=== PATIENT | female | born 1975 | race Caucasian/White ===

== ENCOUNTER 2017-04-16 10:32 | Emergency (ER) | payer BC ==
[2017-04-16] MEDS ORDERED: Nitroglycerin 0.4 MG Tab.SL SL ONE (10:47)
[2017-04-16] MEDS ORDERED: Aspirin 81 MG Tab.Chew PO ONE (10:47)
[2017-04-16 11:25] LABS: CHLORIDE,CL 109 mmol/L (98-110); SODIUM,NA 140 mmol/L (136-146)
--- NOTE | 2017-04-16 11:49 | CR ---
EXAMINATION: Two-view chest (PA and Lateral views). HISTORY: Shortness of breath. FINDINGS: The trachea is midline. The cardiomediastinal silhouette is within normal limits. No pulmonary infil trates, effusions or pneumothorax. Osseous structures appear unremarkable. IMPRESSION: No acute cardiopulmonary process.
--- NOTE | 2017-04-16 12:06 | EDM.PDOC ---
ED HPI GENERAL MEDICAL PROBLEM - General Chief Complaint: Chest Pain Stated Complaint: CHEST PAIN Time Seen by Provider: 04/16/17 10:41 Source of Information: Reports: Patient History Limitations: Reports: No Limitations - History of Present Illness INITIAL COMMENTS - FREE TEXT/NARRATIVE: History of present illness: []Patient has had over a month of left-sided chest pain and epigastric pain. She 's been seeing Dr. Dueñas from cardiology and has had an echocardiogram and EKG. That are apparently normal. Patient started having fever and ongoing chest pain yesterday and decided to come in for further evaluation. She denies any shortness of breath, syncope, nausea, vomiting or diarrhea. Review of systems: As per history of present illness and below otherwise all systems reviewed and negative. Past medical history: As per history of present illness and as reviewed below otherwise noncontributory. Surgical history: As per history of present illness and as reviewed below otherwise noncontributory. Social history: No reported history of drug or alcohol abuse. Family history: As per history of present illness and as reviewed below otherwise noncontributory. Physical exam: General: Well developed, well nourished in NAD HEENT: Atraumatic, normocephalic, pupils reactive, negative for conjunctival pallor or scleral icterus, mucous membranes moist, throat clear, neck supple, nontender, trachea midline. Lungs: Clear to auscultation, breath sounds equal bilaterally, chest nontender. Chest pain is nonreproducibl upper chest Heart: S1S2, regular, negative for clicks, rubs, or JVD. Abdomen: Soft, nondistended, nontender. Negative for masses or hepatosplenomegaly. Negative for costovertebral tenderness. Pelvis: Stable nontender. Genitourinary: Deferred. Rectal: Deferred. Extremities: Atraumatic, negative for cords or calf pain. Neurovascular unremarkable. Neuro: Awake, alert, oriented. Cranial nerves II through XII unremarkable. Cerebellum unremarkable. Motor and sensory unremarkable throughout. Exam nonfocal. Diagnostics: []Labs and x-ray are normal including troponin levels. Therapeutics: []She was given aspirin and nitroglycerin alleviated her pain Impression: []Pleurisy Plan: []Diclofenac, omeprazole follow-up with primary care and/or Dr. Dueñas Definitive disposition and diagnosis as appropriate pending reevaluation and review of above. chest Pain Score (Numeric/FACES): 5 - Related Data Allergies Allergy/AdvReac Type Severity Reaction Status Date / Time ciprofloxacin Allergy Anxiety Verified 04/16/17 10:47 Home Meds: Home Meds ClonazePAM [KlonoPIN] 0.5 mg PO BID 04/16/17 [History] Past Medical History - Past Health History Medical/Surgical History: Denies Medical/Surgical History Psychiatric History: Reports: Anxiety Social & Family History - Family History Family Medical History: Noncontributory - Tobacco Use Smoking Status *Q: Current Every Day Smoker Years of Tobacco use: 20 Packs/Tins Daily: 1 - Recreational Drug Use Recreational Drug Use: No ED ROS GENERAL - Review of Systems Review Of Systems: See Below (History of present illness) ED EXAM, GENERAL - Physical Exam Exam: See Below (History of present illness) Course - Vital Signs Last Recorded V/S: Last Vital Signs Temp 36.6 C 04/16/17 10:40 Pulse 80 04/16/17 10:40 Resp 20 04/16/17 10:40 BP 126/76 04/16/17 11:05 Pulse Ox 98 04/16/17 10:40 - Orders/Labs/Meds Orders: Active Orders 24 hr Category Date Time Status Cardiac Monitoring [RC] . DIRECTED Care 04/16/17 10:47 Active EKG Documentation Completion [RC] STAT Care 04/16/17 10:48 Active CULTURE BLOOD [BC] Stat Lab 04/16/17 11:10 Received CULTURE BLOOD [BC] Stat Lab 04/16/17 11:24 Received Blood Culture x2 Reflex Set [OM.PC] Stat Oth 04/16/17 10:55 Ordered Saline Lock Insert [OM.PC] Stat Oth 04/16/17 10:47 Ordered Labs: Laboratory Tests 04/16/17 04/16/17 04/16/17 Range/Units 10:40 10:40 10:40 WBC 8.93 (4.0-11.0) K/uL RBC 4.66 (4.30-5.90) M/uL Hgb 15.3 (12.0-16.0) g/dL Hct 44.1 (36.0-46.0) % MCV 94.6 (80.0-98.0) fL MCH 32.8 H (27.0-32.0) pg MCHC 34.7 (31.0-37.0) g/dL RDW Std Deviation 42.2 (28.0-62.0) fl RDW Coeff of Robyn 12 (11.0-15.0) % Plt Count 229 (150-400) K/uL MPV 10.70 (7.40-12.00) fL Neut % (Auto) 53.2 (48.0-80.0) % Lymph % (Auto) 39.8 (16.0-40.0) % [place] % (Auto) 5.9 (0.0-15.0) % Eos % (Auto) 0.8 (0.0-7.0) % Baso % (Auto) 0.3 (0.0-1.5) % Neut # (Auto) 4.8 (1.4-5.7) K/uL Lymph # (Auto) 3.6 H (0.6-2.4) K/uL [place] # (Auto) 0.5 (0.0-0.8) K/uL Eos # (Auto) 0.1 (0.0-0.7) K/uL Baso # (Auto) 0.0 (0.0-0.1) K/uL Nucleated RBC % 0.0 /100WBC Nucleated RBCs # 0 K/uL Sodium 140 (136-146) mmol/L Potassium 3.9 (3.5-5.1) mmol/L Chloride 109 (98-110) mmol/L Carbon Dioxide 21 (21-31) mmol/L BUN 7 (6.0-23.0) mg/dL Creatinine 0.8 (0.6-1.5) mg/dL Est Cr Clr Drug Dosing 70.98 mL/min Estimated GFR (MDRD) > 60.0 ml/min Glucose 88 (60-110) mg/dL Calcium 9.7 (8.8-10.8) mg/dL Total Bilirubin 0.7 (0.1-1.5) mg/dL AST 18 (5-40) IU/L ALT 12 (8-54) IU/L Alkaline Phosphatase 69 (40-150) Troponin I < 0.10 (0.0-0.29) NG/ML Total Protein 7.3 (6.0-8.0) g/dL Albumin 4.5 (3.5-5.0) g/dL Globulin 2.8 (2.0-3.5) g/dL Albumin/Globulin Ratio 1.6 (1.3-2.8) Meds: Medications Discontinued Medications Generic Name Dose Route Start Last Admin Trade Name Angelo PRN Reason Stop Dose Admin Aspirin 324 mg 04/16/17 10:47 04/16/17 11:04 Aspirin PO 04/16/17 10:48 324 mg ONETIME ONE Administration Nitroglycerin 0.4 mg 04/16/17 10:47 04/16/17 11:05 Nitrostat SL 04/16/17 10:48 0.4 mg ONETIME ONE Administration Departure - Departure Time of Disposition: 12:05 Disposition: Home, Self-Care 01 Condition: Good Clinical Impression: Pleurisy Forms: ED Department Discharge Additional Instructions: The following information is given to patients seen in the emergency department who are being discharged to home. This information is to outline your options for follow-up care. We provide all patients seen in our emergency department with a follow-up referral. The need for follow-up, as well as the timing and circumstances, are variable depending upon the specifics of your emergency department visit. If you don't have a primary care physician on staff, we will provide you with a referral. We always advise you to contact your personal physician following an emergency department visit to inform them of the circumstance of the visit and for follow-up with them and/or the need for any referrals to a consulting specialist. The emergency department will also refer you to a specialist when appropriate. This referral assures that you have the opportunity for follow-up care with a specialist. All of these measure are taken in an effort to provide you with optimal care, which includes your follow-up. Under all circumstances we always encourage you to contact your private physician who remains a resource for coordinating your care. When calling for follow-up care, please make the office aware that this follow-up is from your recent emergency room visit. If for any reason you are refused follow-up, please contact the [facility] Emergency Department at and asked to speak to the emergency department charge nurse. Diclofenac and omeprazole follow-up with primary care physician and/or Dr. Dueñas [facility] [address] [place] [id number] - My Orders Last 24 Hours: My Active Orders 04/16/17 10:47 Cardiac Monitoring [RC] . DIRECTED Saline Lock Insert [OM.PC] Stat 04/16/17 10:48 EKG Documentation Completion [RC] STAT 04/16/17 10:55 Blood Culture x2 Reflex Set [OM.PC] Stat 04/16/17 11:10 CULTURE BLOOD [BC] Stat 04/16/17 11:24 CULTURE BLOOD [BC] Stat - Assessment/Plan Last 24 Hours: My Active Orders 04/16/17 10:47 Cardiac Monitoring [RC] . DIRECTED Saline Lock Insert [OM.PC] Stat 04/16/17 10:48 EKG Documentation Completion [RC] STAT 04/16/17 10:55 Blood Culture x2 Reflex Set [OM.PC] Stat 04/16/17 11:10 CULTURE BLOOD [BC] Stat 04/16/17 11:24 CULTURE BLOOD [BC] Stat
[2017-04-16 12:41] VITALS: BP 119/78
== END 2017-04-16 12:15 | disposition home or self-care (01) ==
LOC: MW.ED 10:32
DX: R09.1 Pleurisy (principal); F17.210 Nicotine dependence, cigarettes, uncomplicated; F41.9 Anxiety disorder, unspecified; Z88.1 Allergy status to other antibiotic agents
CPT/HCPCS: 36415; 71020; 80053; 84484; 85025; 87040; 93005; 99285; A9270; 99284

== ENCOUNTER 2019-01-24 11:58 | Emergency (ER) | payer BC ==
[2019-01-24] MEDS ORDERED: Sodium Chloride 0.9% 10 ML Syringe FLUSH PRN (12:21)
[2019-01-24] MEDS ORDERED: Ketorolac 30 MG/ML SDV IVPUSH ONE (12:21)
[2019-01-24] MEDS ORDERED: Ondansetron 4 MG/2 ML SDV IVPUSH ONE (12:21)
[2019-01-24] MEDS ORDERED: Sodium Chloride 0.9% 1,000 ML IV ONE (12:21)
[2019-01-24] MEDS ORDERED: Morphine 2 MG/ML Syringe IVPUSH ONE (12:21)
[2019-01-24] MEDS ORDERED: Sodium Chloride 0.9% 2.5 ML Syringe FLUSH PRN (12:21)
--- NOTE | 2019-01-24 12:26 | EDM.PDOC ---
ED HPI GENERAL MEDICAL PROBLEM - General Chief Complaint: Abdominal Pain Stated Complaint: STOMACH PAIN Time Seen by Provider: 01/24/19 12:01 - History of Present Illness INITIAL COMMENTS - FREE TEXT/NARRATIVE: HISTORY AND PHYSICAL: History of present illness: The patient is a 43-year-old female who has no GI history but does have a history of a kidney stone on the right, a pyelonephritis on the right, and an ovarian cyst on the right in the past that needed surgical intervention and also has had a bilateral tubal ligation and presents with complaints of right- sided abdominal pain that started about a week ago. It started gradually and there was no sudden component to it. She says it has gradually gotten worse and initially started in the right mid abdomen and now is radiating to the right upper and right lower quadrants as well as around her bellybutton. She has had nausea with this but no vomiting and no urinary complaints. She has not had any bowel disturbances such as diarrhea constipation or black or bloody stools. The patient says that she presented to the ER in [place] last evening and was evaluated with labs, all of which she was told were normal, but did not have any imaging. She did have IV medications of morphine and Toradol and said that that did help with her pain but as she was leaving the pain was coming back and she was not given anything for the discomfort. The patient says the pain returned and is stronger and she is here for reevaluation. She said that she had a temperature last evening but did not have a documented temperature at home over the last 1 week or last evening when she went home. She says that this pain is different than her kidney stone and ovarian cyst. The patient has no history of food intolerance peptic ulcer disease and did not take any over- the-counter meds for those symptoms or her pain today. She has no flank pain no chest pain or shortness of breath. She has no dysuria hematuria or frequency. The patient states that she had an outpatient test done yesterday morning, a barium swallow, for difficulty swallowing and was not related to her abdominal pain. Review of systems: As per history of present illness and below otherwise all systems reviewed and negative. Past medical history: As per history of present illness and as reviewed below otherwise noncontributory. Surgical history: As per history of present illness and as reviewed below otherwise noncontributory. Social history: No reported history of drug or alcohol abuse. Family history: As per history of present illness and as reviewed below otherwise noncontributory. Physical exam: General: Well-developed well-nourished female who is thin and vital signs are noted by me. She looks uncomfortable in the room with movements HEENT: Atraumatic, normocephalic, negative for conjunctival pallor or scleral icterus, mucous membranes moist, throat clear, neck supple, nontender, trachea midline. Lungs: Clear to auscultation, breath sounds equal bilaterally, chest nontender. Heart: S1S2, regular rate and rhythm no overt murmurs Abdomen: Soft, nondistended, bowel sounds are hypoactive and there is some mild tympany on percussion in the upper abdomen. There is diffuse right-sided tenderness in the right upper right mid and right lower quadrant with some voluntary guarding but no rebound. Negative for masses or hepatosplenomegaly. Negative for costovertebral tenderness. Pelvis: Stable nontender. Genitourinary: Deferred. Rectal: Deferred. Extremities: Atraumatic, negative for cords or calf pain. Neurovascular unremarkable. Neuro: Awake, alert, oriented. Cranial nerves II through XII unremarkable. Cerebellum unremarkable. Motor and sensory unremarkable throughout. Exam nonfocal. Diagnostics: CBC CMP amylase lipase UA with reflex CT scan of the abdomen and pelvis Therapeutics: IV fluids morphine Toradol Zofran Patient is feeling better and I have discussed with her at length her testing results. I've also discussed the CT scan findings with the radiologist Dr. London as I was not sure if I could do any further testing to better evaluate the ureters. He feels at this point as there is no proximal hydronephrosis and the kidneys look good he would not do an ultrasound of the kidney on the right side. He cannot definitely say that there is no kidney stone albeit small in the distal ureter but has is not causing significant hydronephrosis he would not pursue it any further and is treated symptomatically. He is also concerned about the right ovary and says that that looks like an involuting cyst which may be the trigger for her brain area I discussed all of this with the patient and at bedside and will give her pain management for home as well as Zofran and follow-up with our [facility] woman[facility] clinic. Impression: Right-sided abdominal pain, right ovarian cyst Definitive disposition and diagnosis as appropriate pending reevaluation and review of above. Right Lower Abdominal Pain Score (Numeric/FACES): 8 - Related Data Allergies Allergy/AdvReac Type Severity Reaction Status Date / Time ciprofloxacin Allergy Anxiety Verified 04/16/17 10:47 fluoxetine [From Prozac] Allergy Seizure Verified 01/24/19 12:10 naproxen [From Aleve] Allergy Anaphylactic Verified 01/24/19 12:10 Shock Home Meds: Home Meds ClonazePAM [KlonoPIN] 0.5 mg PO BID 04/16/17 [History] Past Medical History - Past Health History Medical/Surgical History: Denies Medical/Surgical History Cardiovascular History: Reports: None Respiratory History: Reports: None Gastrointestinal History: Reports: None [employer] History: Reports: None Musculoskeletal History: Reports: None Neurological History: Reports: None Psychiatric History: Reports: Anxiety Endocrine/Metabolic History: Reports: None Immunologic History: Reports: None - Infectious Disease History Infectious Disease History: Reports: None - Past Surgical History HEENT Surgical History: Reports: Tonsillectomy Female Surgical History: Reports: Other (See Below) Other Female Surgeries/Procedures: Mass removed from right brest. Social & Family History - Family History Family Medical History: Noncontributory - Tobacco Use Smoking Status *Q: Current Every Day Smoker Years of Tobacco use: 30 Packs/Tins Daily: 1 - Caffeine Use Caffeine Use: Reports: Coffee - Recreational Drug Use Recreational Drug Use: Yes Recreational Drug Type: Reports: Marijuana/Hashish ED ROS GENERAL - Review of Systems Review Of Systems: ROS reveals no pertinent complaints other than HPI. ED EXAM, GENERAL - Physical Exam Exam: See Below (See dictation) Course - Vital Signs Last Recorded V/S: Last Vital Signs Temp 36.3 C 01/24/19 12:11 Pulse 93 01/24/19 12:11 Resp 18 01/24/19 12:11 BP 138/72 01/24/19 12:11 Pulse Ox 97 01/24/19 12:11 - Orders/Labs/Meds Orders: Active Orders 24 hr Category Date Time Status Sodium Chloride 0.9% [Saline Flush] Med 01/24/19 12:21 Active 10 ml FLUSH ASDIRECTED PRN Sodium Chloride 0.9% [Saline Flush] Med 01/24/19 12:21 Active 2.5 ml FLUSH ASDIRECTED PRN Saline Lock Insert [OM.PC] Stat Oth 01/24/19 12:20 Ordered Medication Orders Sodium Chloride (Saline Flush) 10 ml FLUSH ASDIRECTED PRN PRN Reason: Keep Vein Open Sodium Chloride (Saline Flush) 2.5 ml FLUSH ASDIRECTED PRN PRN Reason: Keep Vein Open Labs: Laboratory Tests 01/24/19 01/24/19 01/24/19 Range/Units 12:26 12:26 13:25 WBC 7.87 (4.0-11.0) K/uL RBC 4.68 (4.30-5.90) M/uL Hgb 15.7 (12.0-16.0) g/dL Hct 45.2 (36.0-46.0) % MCV 96.6 (80.0-98.0) fL MCH 33.5 H (27.0-32.0) pg MCHC 34.7 (31.0-37.0) g/dL RDW Std Deviation 44.5 (28.0-62.0) fl RDW Coeff of Robyn 13 (11.0-15.0) % Plt Count 239 (150-400) K/uL MPV 10.60 (7.40-12.00) fL Neut % (Auto) 52.4 (48.0-80.0) % Lymph % (Auto) 38.6 (16.0-40.0) % [place] % (Auto) 8.1 (0.0-15.0) % Eos % (Auto) 0.6 (0.0-7.0) % Baso % (Auto) 0.3 (0.0-1.5) % Neut # (Auto) 4.1 (1.4-5.7) K/uL Lymph # (Auto) 3.0 H (0.6-2.4) K/uL [place] # (Auto) 0.6 (0.0-0.8) K/uL Eos # (Auto) 0.1 (0.0-0.7) K/uL Baso # (Auto) 0.0 (0.0-0.1) K/uL Nucleated RBC % 0.0 /100WBC Nucleated RBCs # 0 K/uL Sodium 139 (136-145) mmol/L Potassium 3.7 (3.5-5.1) mmol/L Chloride 104 (98-107) mmol/L Carbon Dioxide 24.8 (21.0-32.0) mmol/L BUN 9 (7.0-18.0) mg/dL Creatinine 0.8 (0.6-1.0) mg/dL Est Cr Clr Drug Dosing 76.09 mL/min Estimated GFR (MDRD) > 60.0 ml/min Glucose 92 (74-106) mg/dL Calcium 9.1 (8.5-10.1) mg/dL Total Bilirubin 0.7 (0.2-1.0) mg/dL AST 14 L (15-37) IU/L ALT 11 L (14-63) IU/L Alkaline Phosphatase 64 (46-116) U/L Total Protein 7.5 (6.4-8.2) g/dL Albumin 4.3 (3.4-5.0) g/dL Globulin 3.2 (2.6-4.0) g/dL Albumin/Globulin Ratio 1.3 (0.9-1.6) Amylase 58 (25-115) U/L Lipase 111 (73-393) U/L Urine Color YELLOW Urine Appearance SLT CLOUDY Urine pH 6.0 (5.0-8.0) Ur Specific [place] 1.015 (1.001-1.035) Urine Protein NEGATIVE (NEGATIVE) mg/dL Urine Glucose (UA) NEGATIVE (NEGATIVE) mg/dL Urine Ketones TRACE H (NEGATIVE) mg/dL Urine Occult Blood NEGATIVE (NEGATIVE) Urine Nitrite NEGATIVE (NEGATIVE) Urine Bilirubin NEGATIVE (NEGATIVE) Urine Urobilinogen 0.2 (<2.0) EU/dL Ur Leukocyte Esterase NEGATIVE (NEGATIVE) Meds: Medications Generic Name Dose Route Start Last Admin Trade Name Freq PRN Reason Stop Dose Admin Sodium Chloride 10 ml 01/24/19 12:21 Saline Flush FLUSH ASDIRECTED PRN Keep Vein Open Sodium Chloride 2.5 ml 01/24/19 12:21 Saline Flush FLUSH ASDIRECTED PRN Keep Vein Open Discontinued Medications Generic Name Dose Route Start Last Admin Trade Name Freq PRN Reason Stop Dose Admin Sodium Chloride 1,000 mls @ 999 mls/hr 01/24/19 12:21 01/24/19 12:25 Normal Saline IV 01/24/19 13:21 999 mls/hr STAT ONE Administration Iopamidol 80 ml 01/24/19 13:54 01/24/19 13:55 Isovue Multipack-370 (76%) IVPUSH 01/24/19 13:55 80 ml ONETIME ONE Administration Ketorolac Tromethamine 30 mg 01/24/19 12:21 01/24/19 12:29 Toradol IVPUSH 01/24/19 12:22 30 mg ONETIME ONE Administration Morphine Sulfate 4 mg 01/24/19 12:21 01/24/19 12:31 Morphine IVPUSH 01/24/19 12:22 4 mg ONETIME ONE Administration Ondansetron HCl 4 mg 01/24/19 12:21 01/24/19 12:29 Zofran IVPUSH 01/24/19 12:22 4 mg ONETIME ONE Administration Departure - Departure Time of Disposition: 15:24 Disposition: Home, Self-Care 01 Condition: Good Clinical Impression: Ovarian cyst Abdominal pain Qualifiers: Abdominal location: unspecified location Qualified Code(s): R10.9 - Unspecified abdominal pain - Discharge Information Referrals: PCP,Unknown [Primary Care Provider] - Forms: ED Department Discharge Additional Instructions: The following information is given to patients seen in the emergency department who are being discharged to home. This information is to outline your options for follow-up care. We provide all patients seen in our emergency department with a follow-up referral. The need for follow-up, as well as the timing and circumstances, are variable depending upon the specifics of your emergency department visit. If you don't have a primary care physician on staff, we will provide you with a referral. We always advise you to contact your personal physician following an emergency department visit to inform them of the circumstance of the visit and for follow-up with them and/or the need for any referrals to a consulting specialist. The emergency department will also refer you to a specialist when appropriate. This referral assures that you have the opportunity for followup care with a specialist. All of these measure are taken in an effort to provide you with optimal care, which includes your followup. Under all circumstances we always encourage you to contact your private physician who remains a resource for coordinating your care. When calling for followup care, please make the office aware that this follow-up is from your recent emergency room visit. If for any reason you are refused follow-up, please contact the [facility] emergency department at and ask to speak to the emergency department charge nurse. [facility] [address] [place] [address] [place] [address] Please take medications as prescribed and needed. Push hydration and rest. Please call and schedule a follow-up appointment to reevaluate the ovarian cyst on the right and for further management of this pain. Return to ER as needed and as discussed - My Orders Last 24 Hours: My Active Orders 01/24/19 12:20 Saline Lock Insert [OM.PC] Stat 01/24/19 12:21 Sodium Chloride 0.9% [Saline Flush] 10 ml FLUSH ASDIRECTED PRN Sodium Chloride 0.9% [Saline Flush] 2.5 ml FLUSH ASDIRECTED PRN - Assessment/Plan Last 24 Hours: My Active Orders 01/24/19 12:20 Saline Lock Insert [OM.PC] Stat 01/24/19 12:21 Sodium Chloride 0.9% [Saline Flush] 10 ml FLUSH ASDIRECTED PRN Sodium Chloride 0.9% [Saline Flush] 2.5 ml FLUSH ASDIRECTED PRN
[2019-01-24 12:56] LABS: CHLORIDE,CL 104 mmol/L (98-107); SODIUM,NA 139 mmol/L (136-145)
[2019-01-24] MEDS ORDERED: Iopamidol 755 MG/ML 500 ML Multipack Bottle IVPUSH ONE (13:54)
--- NOTE | 2019-01-24 14:43 | CT ---
CT of the abdomen and pelvis with contrast. HISTORY: Kidney stone TECHNIQUE: Axial CT images were obtained of the abdomen and pelvis following administration of 80 mL of Isovue-370 in the left antecubital fossa without complication. Coronal and sagittal reconstructions obtained. FINDINGS: The lung bases are clear, no pleural effusion. The liver, spleen, adrenal glands, and pancreas appear normal. The gallbladder is normal. There is no bulky retroperitoneal lymphadenopathy or abdominal ascites. The kidneys enhance and function symmetrically without evidence of obstructive uropathy. However the mid to distal ureters are not well imaged due to extensive artifact from the previous barium study. The visualized large and small bowel are normal caliber without evidence of obstruction. The appendix is not definitively identified due to extensive artifact. There is a involuting right ovarian follicle. There is mild edema and fluid adjacent to the right ovary. No suspicious osseous abnormalities identified. IMPRESSION: 1. No definite evidence of hydronephrosis, however evaluation of the ureters is obscured secondary to extensive artifact from the previous barium study. 2. There is an involuting follicle within the right ovary with a trace paraovarian stranding/fluid. Overall this is also not well characterized due to artifact.
[2019-01-24 19:20] VITALS: BP 97/56
== END 2019-01-24 15:50 | disposition home or self-care (01) ==
LOC: MW.ED 11:58
DX: N83.201 Unspecified ovarian cyst, right side (principal); F41.9 Anxiety disorder, unspecified; Z88.1 Allergy status to other antibiotic agents; Z88.8 Allergy status to other drugs, medicaments and biological substances; Z79.899 Other long term (current) drug therapy
CPT/HCPCS: 74177; 80053; 81003; 82150; 83690; 85025; 96361; 96374; 96375; 99284; J1885; J2270; J2405; J7040; Q9967

== ENCOUNTER 2020-04-01 07:43 | Day surgery (SDC) | payer BC ==
[2020-03-31 10:20] LABS: BLOOD UREA NITROGEN,BUN 6 mg/dL (7.0-18.0); CARBON DIOXIDE,CO2 27.4 mmol/L (21.0-32.0); CHLORIDE,CL 104 mmol/L (98-107); GLUCOSE RANDOM 92 mg/dL (74-106); POTASSIUM,K 4.1 mmol/L (3.5-5.1); SODIUM,NA 140 mmol/L (136-145)
[~2020-04-01 07:43] MED LIST: Lactated Ringers 1,000 ML IV SCH; Sodium Chloride 0.9% 10 ML SDV IV PRN; Sodium Chloride 0.9% 10 ML Syringe FLUSH PRN; Sodium Chloride 0.9% 2.5 ML Syringe FLUSH PRN; ceFAZolin 2 GM in Premix Bag 1 BAG IV ONE
--- NOTE | 2020-04-01 08:44 | PCM.PREANE ---
Preanesthetic Assessment - Anesthesia/Transfusion/Family Hx Anesthesia History: Prior Anesthesia Reaction Type of Anesthesia Reaction: Excessive Nausea/Vomiting Family History of Anesthesia Reaction: No Transfusion History: No Prior Transfusion(s) - Review of Systems General: No Symptoms Pulmonary: No Symptoms Cardiovascular: No Symptoms Gastrointestinal: No Symptoms Neurological: No Symptoms Other: Reports: None - Physical Assessment NPO Status Date: 03/31/20 Vital Signs: Last Vital Signs Temp 98.8 F 04/01/20 08:17 Pulse 83 04/01/20 08:17 Resp 16 04/01/20 08:17 BP 126/77 04/01/20 08:17 Pulse Ox 98 04/01/20 08:17 Height: 5 ft 4 in Weight: 50.802 kg ASA Class: 2 Mental Status: Alert & Oriented x3 Airway Class: Mallampati = 2 Dentition: Reports: Dentures (upper, full plate) ROM/Head Extension: Full Lungs: Clear to Auscultation, Normal Respiratory Effort Cardiovascular: Regular Rate, Regular Rhythm - Lab Values: Laboratory Last Values WBC 8.19 K/uL (4.0-11.0) 03/31/20 09:49 RBC 5.04 M/uL (4.30-5.90) 03/31/20 09:49 Hgb 16.0 g/dL (12.0-16.0) 03/31/20 09:49 Hct 46.9 % (36.0-46.0) H 03/31/20 09:49 MCV 93.1 fL (80.0-98.0) 03/31/20 09:49 MCH 31.7 pg (27.0-32.0) 03/31/20 09:49 MCHC 34.1 g/dL (31.0-37.0) 03/31/20 09:49 RDW Std Deviation 45.6 fl (28.0-62.0) 03/31/20 09:49 RDW Coeff of Robyn 13 % (11.0-15.0) 03/31/20 09:49 Plt Count 251 K/uL (150-400) 03/31/20 09:49 MPV 10.90 fL (7.40-12.00) 03/31/20 09:49 Nucleated RBC % 0.0 /100WBC 03/31/20 09:49 Nucleated RBCs # 0 K/uL 03/31/20 09:49 Sodium 140 mmol/L (136-145) 03/31/20 09:49 Potassium 4.1 mmol/L (3.5-5.1) 03/31/20 09:49 Chloride 104 mmol/L (98-107) 03/31/20 09:49 Carbon Dioxide 27.4 mmol/L (21.0-32.0) 03/31/20 09:49 BUN 6 mg/dL (7.0-18.0) L 03/31/20 09:49 Creatinine 0.6 mg/dL (0.6-1.0) 03/31/20 09:49 Est Cr Clr Drug Dosing 96.96 mL/min 03/31/20 09:49 Estimated GFR (MDRD) > 60.0 ml/min 03/31/20 09:49 Glucose 92 mg/dL (74-106) 03/31/20 09:49 Calcium 9.7 mg/dL (8.5-10.1) 03/31/20 09:49 HCG, Qual NEGATIVE (NEG) 03/31/20 09:49 Blood Type B POSITIVE 03/31/20 09:54 Antibody Screen NEGATIVE 03/31/20 09:54 - Allergies Allergies/Adverse Reactions: Allergies Allergy/AdvReac Type Severity Reaction Status Date / Time adhesive tape Allergy Blisters Verified 04/01/20 08:26 ciprofloxacin Allergy Anxiety Verified 04/01/20 08:26 fluoxetine [From Prozac] Allergy Seizure Verified 04/01/20 08:26 naproxen [From Aleve] Allergy Anaphylactic Verified 04/01/20 08:26 Shock - Blood Blood Available: No - Anesthesia Plan Pre-Op Medication Ordered: Other (scop) - Acknowledgements Anesthesia Type Planned: General Anesthesia Pt an Appropriate Candidate for the Planned Anesthesia: Yes Alternatives and Risks of Anesthesia Discussed w Pt/Guardian: Yes Pt/Guardian Understands and Agrees with Anesthesia Plan: Yes Additional Comments: PMH: recent sore throat, no fever, wheeze or bronchial secretions PLAN: ga/lma PreAnesthesia Questionnaire - Past Health History Medical/Surgical History: Denies Medical/Surgical History HEENT History: Reports: Other (See Below) Other HEENT History: wears glasses, top denture Cardiovascular History: Reports: None Respiratory History: Reports: Other (See Below) Other Respiratory History: states a doctor in [place] told her she had the starting of emphyzema. 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 Musculoskeletal History: Reports: Fracture Other Musculoskeletal History: hx fx arm as a child Neurological History: Reports: Migraines, Other (See Below) Other Neuro History: had seizure due to reaction to prozac Psychiatric History: Reports: Anxiety, Depression Endocrine/Metabolic History: Reports: None Hematologic History: Reports: None Immunologic History: Reports: None Oncologic (Cancer) History: Reports: None Dermatologic History: Reports: Psoriasis - Infectious Disease History Infectious Disease History: Reports: None - Past Surgical History Head Surgeries/Procedures: Reports: None HEENT Surgical History: Reports: Oral Surgery, Tonsillectomy Cardiovascular Surgical History: Reports: None Respiratory Surgical History: Reports: None GI Surgical History: Reports: None Female Surgical History: Reports: Breast Biopsy, Tubal Ligation, Other (See Below) Other Female Surgeries/Procedures: Mass removed from right breast, laparoscopic aspiration of ovaries Endocrine Surgical History: Reports: None Neurological Surgical History: Reports: None Musculoskeletal Surgical History: Reports: None Oncologic Surgical History: Reports: None Dermatological Surgical History: Reports: None - SUBSTANCE USE Smoking Status *Q: Current Every Day Smoker Tobacco Use Within Last Twelve Months: Cigarettes Recreational Drug Type: Reports: Marijuana/Hashish Recreational Drug Last Use: "1 month ago" - HOME MEDS Home Medications: Home Meds Ascorbate Calcium [Vitamin C] 500 mg PO DAILY 03/29/20 [History] Clobetasol Propionate 1 applic TOP BID 03/29/20 [History] [place]-3/DHA/Epa/Fish Oil [[place]-3 Fish Oil 1,000 MG Sfgl] 1,000 mg PO BID 03/29/20 [History] Omeprazole 20 mg PO DAILY 03/29/20 [History] Vitamin E 400 units PO DAILY 03/29/20 [History] clonazePAM [Clonazepam] 0.5 - 1 tab PO ASDIRECTED PRN 03/29/20 [History] - CURRENT (IN HOUSE) MEDS Current Meds: Current Medications Lactated Ringer's (Ringers, Lactated) 1,000 mls @ 125 mls/hr IV ASDIRECTED TORI Sodium Chloride (Saline Flush) 10 ml FLUSH ASDIRECTED PRN PRN Reason: Keep Vein Open Sodium Chloride (Saline Flush) 2.5 ml FLUSH ASDIRECTED PRN PRN Reason: Keep Vein Open Sodium Chloride (Normal Saline) 10 ml IV ASDIRECTED PRN PRN Reason: IV Use Discontinued Medications Cefazolin Sodium/Dextrose 2 gm (/ Premix) 50 mls @ 100 mls/hr IV ONETIME ONE Stop: 03/31/20 09:08
[2020-04-01] MEDS ORDERED: Scopolamine 1.5 MG Transdermal Patch TRDERM PRN (08:56)
[2020-04-01] MEDS ORDERED: Rocuronium Bromide 50 MG/5 ML Syringe ONE (09:24)
[2020-04-01] MEDS ORDERED: Lidocaine 2% 5 ML SDV ONE (09:24)
[2020-04-01] MEDS ORDERED: Propofol 200 MG/20 ML SDV ONE (09:25)
[2020-04-01] MEDS ORDERED: Sugammadex Sodium 200 MG/2 ML VIAL ONE (09:25)
[2020-04-01] MEDS ORDERED: Fluorescein 5 ML Vial ONE (09:27)
[2020-04-01] MEDS ORDERED: fentaNYL 250 MCG/5 ML SDV ONE (09:28)
[2020-04-01] MEDS ORDERED: Ondansetron 4 MG/2 ML SDV ONE (09:37)
[2020-04-01] MEDS ORDERED: Dexamethasone 4 MG/ML 5 ML MDV ONE (09:37)
[2020-04-01] MEDS ORDERED: ceFAZolin 1 GM Vial ONE (09:53)
[2020-04-01] MEDS ORDERED: EPINEPHrine 1:10,000 1 MG/10 ML Syringe IVPUSH PRN (09:58)
[2020-04-01] MEDS ORDERED: Naloxone 0.4 MG/ML Syringe IVPUSH PRN (09:58)
[2020-04-01] MEDS ORDERED: Atropine 0.1 MG/ML 10 ML Syringe IVPUSH PRN ×2 (09:58)
[2020-04-01] MEDS ORDERED: 50% Dextrose in Water 50 ML Syringe IVPUSH PRN (09:58)
[2020-04-01] MEDS ORDERED: Albuterol 0.083% 2.5 MG/3 ML Neb Soln NEB PRN (09:58)
[2020-04-01] MEDS ORDERED: Promethazine 25 MG/ML SDV IM PRN (10:33)
[2020-04-01] MEDS ORDERED: Acetaminophen/oxyCODONE 325-5 MG Tab PO PRN (10:33)
[2020-04-01] MEDS ORDERED: Ketorolac 30 MG/ML SDV IVPUSH ONE (10:33)
[2020-04-01] MEDS ORDERED: Ketorolac 30 MG/ML SDV IVPUSH PRN (10:33)
--- NOTE | 2020-04-01 10:36 | PCM.OPNOTE ---
- General Post-Op/Procedure Note Date of Surgery/Procedure: 04/01/20 Operative Procedure(s): TVH, Cysto. Pre Op Diagnosis: Bleeding Post-Op Diagnosis: Same Anesthesia Technique: General ET Tube Primary Surgeon: Otto Freedman Complications: None Condition: Good
[2020-04-01] MEDS ORDERED: Acetaminophen 1,000 MG in Premix Bag 1 BAG IV ONE (10:48)
[2020-04-01] MEDS ORDERED: HYDROmorphone 2 MG/ML Syringe IVPUSH ONE (10:49)
[2020-04-01] MEDS ORDERED: HYDROmorphone 2 MG/ML Syringe ONE (10:50)
[2020-04-01] MEDS: fentaNYL 100 MCG/2 ML SDV IVPUSH PRN ×4 (11:12→11:35)
--- NOTE | 2020-04-01 11:55 | PCM.POSTAN ---
POST ANESTHESIA ASSESSMENT - MENTAL STATUS Mental Status: Alert, Oriented - VITAL SIGNS Vital Signs: Last Vital Signs Temp 36.1 C 04/01/20 10:38 Pulse 89 04/01/20 11:49 Resp 10 L 04/01/20 11:49 BP 111/65 04/01/20 11:49 Pulse Ox 94 L 04/01/20 11:49 - RESPIRATORY Respiratory Status: Respiratory Rate WNL, Airway Patent, O2 Saturation Stable - CARDIOVASCULAR CV Status: Pulse Rate WNL, Blood Pressure Stable - GASTROINTESTINAL GI Status: No Symptoms - POST OP HYDRATION Hydration Status: Adequate & Stable
[2020-04-01] MEDS: Morphine 4 MG/ML Syringe IVPUSH PRN ×2 (12:32→18:11)
--- NOTE | 2020-04-01 13:25 | OR ---
SURGEON: Otto Freedman MD DATE OF PROCEDURE: 04/01/2020 PREOPERATIVE DIAGNOSIS: Menometrorrhagia. POSTOPERATIVE DIAGNOSIS: Menometrorrhagia. OPERATION PERFORMED: Examination under anesthesia, total vaginal hysterectomy, and cystoscopy. PRIMARY SURGEON: Otto Freedman MD DETAILER [employer]IC[employer]: ANJU ceron. ANESTHESIA: General endotracheal intubation. ESTIMATED BLOOD LOSS: Less than 100 mL. COMPLICATIONS: None. FINDINGS: Uterus about 8-week size. Both ovaries are essentially normal. INDICATIONS FOR SURGERY: Antlers referred to the admit note. PROCEDURE IN DETAIL: The patient was brought to the OR, properly identified, and after adequate level of anesthesia, the patient was placed in lithotomy position. Examination under anesthesia determined that surgery could be done safely vaginally, so the patient was prepped and draped in sterile fashion as usual. A short weighted speculum was placed in vagina and straight catheter was used to empty the bladder. Then, a circular incision in the vaginal mucosa with electrocautery was done and then the posterior cul-de-sac was entered posteriorly with the Fuentes scissors. The peritoneum and the vagina tacked posteriorly and the short weighted speculum replaced with extended long weighted speculum. Then, the uterosacral ligament identified from both sides, clamped with a curved Zeppelin, transected, suture ligated with 2-0 Vicryl pop-off. The same thing was done with the cardinal ligament. Then, the cervicovesical space was entered anteriorly and the bladder retracted completely away from the operative field and peritoneal cavity was entered. The broad ligament was clamped from both sides with curved Zeppelin, transected, suture ligated with 2-0 Vicryl pop-off. The uterine vessels were suture ligated at this step. The uterus delivered posteriorly and the superior pedicle was clamped with 90-degree Zeppelin on both sides, transected, and specimens removed. Both ovaries looked normal and preserved. Then, the superior pedicle tied twice with a free tie from both sides. Inspection of the operative field showed no oozing, no bleeding. Then, we proceeded to close the vaginal flap with 2-0 Vicryl interrupted figure-of- eight sutures. While we were doing that, we asked the Anesthesia personnel to give the patient fluorescein and cystoscopy was performed. The bladder was intact. Both ureteric orifices seen with the dye coming from both of them. Thus, the patency of both ureters verified. Once that was done, the procedure ended. Instrument and sponge count was correct. The patient tolerated the procedure well, went to recovery room in stable general condition. JANET / ANDRIA /[id number]
[2020-04-01] MEDS: Acetaminophen/oxyCODONE 325-5 MG Tab PO PRN (14:35)
[2020-04-01] MEDS: Ondansetron 4 MG/2 ML SDV IVPUSH PRN ×2 (16:01→22:18)
[2020-04-02 06:35] LABS: BLOOD UREA NITROGEN,BUN 10 mg/dL (7.0-18.0); CARBON DIOXIDE,CO2 27.5 mmol/L (21.0-32.0); CHLORIDE,CL 104 mmol/L (98-107); GLUCOSE RANDOM 121 mg/dL (74-106); SODIUM,NA 138 mmol/L (136-145)
--- NOTE | 2020-04-02 07:08 | PCM48HPAN ---
Post Anesthesia Note - EVALUATION WITHIN 48HRS OF ANESTHETIC Vital Signs in Normal Range: Yes Patient Participated in Evaluation: Yes Respiratory Function Stable: Yes Airway Patent: Yes Cardiovascular Function Stable: Yes Hydration Status Stable: Yes Pain Control Satisfactory: Yes (Some soreness. Well Controlled) Nausea and Vomiting Control Satisfactory: Yes Mental Status Recovered: Yes Vital Signs: Last Vital Signs Temp 37.2 C 04/02/20 03:11 Pulse 80 04/02/20 03:11 Resp 16 04/02/20 03:11 BP 94/55 L 04/02/20 03:11 Pulse Ox 97 04/02/20 03:11 - COMMENTS/OBSERVATIONS Free Text/Narrative:: Progressing well.
[2020-04-02 08:02] VITALS: BP 92/52; PULSE 82
--- NOTE | 2020-04-02 08:54 | PCM.SURGPN ---
- General Info Date of Service: 04/02/20 POD#: 1 Functional Status: Reports: Pain Controlled - Review of Systems General: Reports: No Symptoms HEENT: Reports: No Symptoms Pulmonary: Reports: No Symptoms Cardiovascular: Reports: No Symptoms Gastrointestinal: Reports: No Symptoms Genitourinary: Reports: No Symptoms Musculoskeletal: Reports: No Symptoms Skin: Reports: No Symptoms Neurological: Reports: No Symptoms Psychiatric: Reports: No Symptoms - Patient Data Vitals - Most Recent: Last Vital Signs Temp 37.2 C 04/02/20 08:00 Pulse 82 04/02/20 08:00 Resp 18 04/02/20 08:00 BP 92/52 L 04/02/20 08:00 Pulse Ox 94 L 04/02/20 08:00 Weight - Most Recent: 50.802 kg I&O - Last 24 Hours: Intake & Output 04/01/20 04/02/20 04/02/20 22:59 06:59 14:59 Intake Total 100 772 Output Total 200 450 Balance -100 322 Lab Results Last 24 Hrs: Laboratory Results - last 24 hr 04/02/20 04/02/20 Range/Units 05:42 05:42 WBC 14.61 H (4.0-11.0) K/uL RBC 2.77 L (4.30-5.90) M/uL Hgb 8.8 L (12.0-16.0) g/dL Hct 25.8 L (36.0-46.0) % MCV 93.1 (80.0-98.0) fL MCH 31.8 (27.0-32.0) pg MCHC 34.1 (31.0-37.0) g/dL RDW Std Deviation 44.1 (28.0-62.0) fl RDW Coeff of Robyn 13 (11.0-15.0) % Plt Count 212 (150-400) K/uL MPV 10.50 (7.40-12.00) fL Neut % (Auto) 69.8 (48.0-80.0) % Lymph % (Auto) 20.6 (16.0-40.0) % [place] % (Auto) 9.4 (0.0-15.0) % Eos % (Auto) 0.1 (0.0-7.0) % Baso % (Auto) 0.1 (0.0-1.5) % Neut # (Auto) 10.2 H (1.4-5.7) K/uL Lymph # (Auto) 3.0 H (0.6-2.4) K/uL [place] # (Auto) 1.4 H (0.0-0.8) K/uL Eos # (Auto) 0.0 (0.0-0.7) K/uL Baso # (Auto) 0.0 (0.0-0.1) K/uL Nucleated RBC % 0.0 /100WBC Nucleated RBCs # 0 K/uL Sodium 138 (136-145) mmol/L Potassium 4.0 (3.5-5.1) mmol/L Chloride 104 (98-107) mmol/L Carbon Dioxide 27.5 (21.0-32.0) mmol/L BUN 10 (7.0-18.0) mg/dL Creatinine 0.7 (0.6-1.0) mg/dL Est Cr Clr Drug Dosing 83.11 mL/min Estimated GFR (MDRD) > 60.0 ml/min Glucose 121 H (74-106) mg/dL Calcium 8.3 L (8.5-10.1) mg/dL Med Orders - Current: Current Medications Lactated Ringer's (Ringers, Lactated) 1,000 mls @ 125 mls/hr IV ASDIRECTED [facility] Last Admin: 04/01/20 23:30 Dose: 125 mls/hr Documented by: Ketorolac Tromethamine (Toradol) 30 mg IVPUSH Q6H PRN PRN Reason: Pain (severe 7-10) Stop: 04/06/20 10:33 Last Admin: 04/01/20 22:19 Dose: 30 mg Documented by: Morphine Sulfate (Morphine) 4 mg IVPUSH Q2H PRN PRN Reason: Pain (severe 7-10) Last Admin: 04/01/20 18:11 Dose: 4 mg Documented by: Ondansetron HCl (Zofran) 4 mg IVPUSH Q6H PRN PRN Reason: Nausea/Vomiting Last Admin: 04/01/20 22:18 Dose: 4 mg Documented by: Oxycodone/Acetaminophen (Percocet 325-5 Mg) 1 tab PO Q4H PRN PRN Reason: Pain (moderate 4-6) Oxycodone/Acetaminophen (Percocet 325-5 Mg) 2 tab PO Q4H PRN PRN Reason: Pain (moderate 4-6) Last Admin: 04/01/20 14:35 Dose: 2 tab Documented by: Promethazine HCl (Phenergan) 25 mg IM Q6H PRN PRN Reason: Nausea/Vomiting Scopolamine (Transderm-Scop) 1.5 mg TRDERM Q72H PRN PRN Reason: Nausea/Vomiting Last Admin: 04/01/20 09:04 Dose: 1.5 mg Documented by: Sodium Chloride (Saline Flush) 10 ml FLUSH ASDIRECTED PRN PRN Reason: Keep Vein Open Sodium Chloride (Saline Flush) 2.5 ml FLUSH ASDIRECTED PRN PRN Reason: Keep Vein Open Sodium Chloride (Normal Saline) 10 ml IV ASDIRECTED PRN PRN Reason: IV Use Discontinued Medications Albuterol (Proventil Neb Soln) 2.5 mg NEB ONETIME PRN PRN Reason: Wheezing Atropine Sulfate (Atropine 0.1 Mg/Ml) 0.5 mg IVPUSH ASDIRECTED PRN PRN Reason: Hypo-perfusion Atropine Sulfate (Atropine 0.1 Mg/Ml) 1 mg IVPUSH ASDIRECTED PRN PRN Reason: Hypo-Perfusion Cefazolin Sodium (Ancef) Confirm Administered Dose 2 gm .ROUTE .STK-MED ONE Stop: 04/01/20 09:54 Dexamethasone (Dexamethasone) Confirm Administered Dose 20 mg .ROUTE .STK-MED ONE Stop: 04/01/20 09:38 Dextrose/Water (Dextrose 50% In Water) 50 ml IVPUSH ASDIRECTED PRN PRN Reason: Hypoglycemia Epinephrine HCl (Epinephrine 1:10,000) 1 mg IVPUSH ASDIRECTED PRN PRN Reason: ACLS Guidelines Fentanyl (Sublimaze) Confirm Administered Dose 250 mcg .ROUTE .STK-MED ONE Stop: 04/01/20 09:29 Fentanyl (Sublimaze) 50 mcg IVPUSH Q5M PRN PRN Reason: Pain Last Admin: 04/01/20 11:35 Dose: 50 mcg Documented by: Fluorescein Sodium (Ak-Fluor) Confirm Administered Dose 5 ml .ROUTE .STK-MED ONE Stop: 04/01/20 09:28 Hydromorphone HCl (Dilaudid) 1 mg IVPUSH ONETIME ONE Stop: 04/01/20 10:50 Last Admin: 04/01/20 10:52 Dose: 1 mg Documented by: Hydromorphone HCl (Dilaudid) Confirm Administered Dose 2 mg .ROUTE .STK-MED ONE Stop: 04/01/20 10:51 Last Admin: 04/01/20 13:20 Dose: Not Given Documented by: Cefazolin Sodium/Dextrose 2 gm (/ Premix) 50 mls @ 100 mls/hr IV ONETIME ONE Stop: 03/31/20 09:08 Last Admin: 04/01/20 13:20 Dose: Not Given Documented by: Acetaminophen 1,000 mg/ Premix 100 mls @ 400 mls/hr IV NOW ONE Stop: 04/01/20 11:02 Last Admin: 04/01/20 11:08 Dose: 400 mls/hr Documented by: Acetaminophen (Ofirmev) Confirm Administered Dose 100 mls @ as directed .ROUTE .STK-MED ONE Stop: 04/01/20 11:07 Ketorolac Tromethamine (Toradol) 30 mg IVPUSH ONETIME ONE Stop: 04/01/20 10:34 Last Admin: 04/01/20 10:59 Dose: 30 mg Documented by: Lidocaine (Xylocaine-Mpf 2%) Confirm Administered Dose 5 ml .ROUTE .STK-MED ONE Stop: 04/01/20 09:25 Naloxone HCl (Narcan) 0.1 mg IVPUSH ASDIRECTED PRN PRN Reason: Respiratory Depression Ondansetron HCl (Zofran) Confirm Administered Dose 4 mg .ROUTE .STK-MED ONE Stop: 04/01/20 09:38 Propofol (Diprivan 20 Ml) Confirm Administered Dose 600 mg .ROUTE .STK-MED ONE Stop: 04/01/20 09:26 Rocuronium [place] (Rocuronium [place]) Confirm Administered Dose 50 mg .ROUTE .STK-MED ONE Stop: 04/01/20 09:25 Sugammadex Sodium ([place]) Confirm Administered Dose 200 mg .ROUTE .STK-MED ONE Stop: 04/01/20 09:26 - Exam Wound/Incisions: Healing Well General: Alert, Oriented HEENT: Pupils Equal Neck: Supple Lungs: Clear to Auscultation, Normal Respiratory Effort Cardiovascular: Regular Rate, Regular Rhythm GI/Abdominal Exam: Normal Bowel Sounds, Soft, Non-Tender, No Organomegaly, No Distention, No Abnormal Bruit, No Mass, Pelvis Stable Extremities: Normal Inspection, Normal Range of Motion, Non-Tender, No Pedal Edema, Normal Capillary Refill Skin: Warm, Dry, Intact Neurological: No New Focal Deficit Psy/Mental Status: Alert, Normal Affect, Normal Mood Sepsis Event Note - Evaluation Sepsis Screening Result: No Definite Risk - Focused Exam Vital Signs: Vital Signs Temp Pulse Resp BP Pulse Ox 04/02/20 08:00 37.2 C 82 18 92/52 L 94 L 04/02/20 03:11 37.2 C 80 16 94/55 L 97 04/01/20 23:29 36.6 C 70 16 93/54 L 96 Date Exam was Performed: 04/02/20 Time Exam was Performed: 08:53 - Problem List Review Problem List Initiated/Reviewed/Updated: Yes - My Orders Last 24 Hours: Active Orders 24 hr Category Date Time Status Patient Status [ADT] Routine ADT 04/01/20 10:33 Active Antiembolic Devices [RC] PER UNIT ROUTINE Care 04/01/20 10:33 Active Blood Glucose Check, Bedside [RC] PRN Care 04/01/20 09:58 Active Notify Provider Vital Signs [RC] ASDIRECTED Care 04/01/20 09:58 Active Notify Provider Vital Signs [RC] ASDIRECTED Care 04/01/20 10:33 Active Oxygen Therapy [RC] ASDIRECTED Care 04/01/20 10:33 Active Oxygen Therapy [RC] PRN Care 04/01/20 09:58 Active RT Aerosol Therapy [RC] ASDIRECTED Care 04/01/20 09:58 Active RT Aerosol Therapy [RC] ASDIRECTED Care 04/01/20 09:58 Active RT Incentive Spirometry [RC] Q2HWA Care 04/01/20 10:33 Active Up With Assistance [RC] PER UNIT ROUTINE Care 04/01/20 10:33 Active Up ad Zahida [RC] PER UNIT ROUTINE Care 04/01/20 10:33 Active Vital Signs [RC] Q4H Care 04/01/20 10:33 Active Vital Signs [RC] Q5M Care 04/01/20 09:58 Active Regular Diet [DIET] Diet 04/01/20 Lunch Active Acetaminophen/oxyCODONE [Percocet 325-5 MG] Med 04/01/20 10:33 Active 1 tab PO Q4H PRN Acetaminophen/oxyCODONE [Percocet 325-5 MG] Med 04/01/20 10:33 Active 2 tab PO Q4H PRN Ketorolac [Toradol] Med 04/01/20 10:33 Active 30 mg IVPUSH Q6H PRN Morphine Med 04/01/20 10:33 Active 4 mg IVPUSH Q2H PRN Ondansetron [Zofran] Med 04/01/20 10:33 Active 4 mg IVPUSH Q6H PRN Promethazine [Phenergan] Med 04/01/20 10:33 Active 25 mg IM Q6H PRN Scopolamine [Transderm-Scop] Med 04/01/20 08:56 Active 1.5 mg TRDERM Q72H PRN Peripheral IV Discontinue [OM.PC] Routine Oth 04/01/20 10:33 Ordered Sequential Compression Device [OM.PC] Per Unit Routine Oth 04/01/20 10:33 Ordered Resuscitation Status Routine Resus Stat 04/01/20 10:33 Ordered Medication Orders Lactated Ringer's (Ringers, Lactated) 1,000 mls @ 125 mls/hr IV ASDIRECTED TORI Last Admin: 04/01/20 23:30 Dose: 125 mls/hr Documented by: RAJENDRA Ketorolac Tromethamine (Toradol) 30 mg IVPUSH Q6H PRN PRN Reason: Pain (severe 7-10) Stop: 04/06/20 10:33 Last Admin: 04/01/20 22:19 Dose: 30 mg Documented by: RAJENDRA Morphine Sulfate (Morphine) 4 mg IVPUSH Q2H PRN PRN Reason: Pain (severe 7-10) Last Admin: 04/01/20 18:11 Dose: 4 mg Documented by: Admin: 04/01/20 12:32 Dose: 4 mg Documented by: CLAUDIA Ondansetron HCl (Zofran) 4 mg IVPUSH Q6H PRN PRN Reason: Nausea/Vomiting Last Admin: 04/01/20 22:18 Dose: 4 mg Documented by: Admin: 04/01/20 16:01 Dose: 4 mg Documented by: CLAUDIA Oxycodone/Acetaminophen (Percocet 325-5 Mg) 1 tab PO Q4H PRN PRN Reason: Pain (moderate 4-6) Oxycodone/Acetaminophen (Percocet 325-5 Mg) 2 tab PO Q4H PRN PRN Reason: Pain (moderate 4-6) Last Admin: 04/01/20 14:35 Dose: 2 tab Documented by: CLAUDIA Promethazine HCl (Phenergan) 25 mg IM Q6H PRN PRN Reason: Nausea/Vomiting Scopolamine (Transderm-Scop) 1.5 mg TRDERM Q72H PRN PRN Reason: Nausea/Vomiting Last Admin: 04/01/20 09:04 Dose: 1.5 mg Documented by: FENSGLO Sodium Chloride (Saline Flush) 10 ml FLUSH ASDIRECTED PRN PRN Reason: Keep Vein Open Sodium Chloride (Saline Flush) 2.5 ml FLUSH ASDIRECTED PRN PRN Reason: Keep Vein Open Sodium Chloride (Normal Saline) 10 ml IV ASDIRECTED PRN PRN Reason: IV Use - Assessment Assessment (Free Text/Narrative):: S/P TVH doing well - Plan Plan (Free Text/Narrative):: Send home today.
[2020-04-02] MEDS: Acetaminophen/oxyCODONE 325-5 MG Tab PO PRN (09:08)
[2020-04-02] MEDS: Ondansetron 4 MG/2 ML SDV IVPUSH PRN (09:09)
== END 2020-04-02 10:00 | disposition home or self-care (01) ==
LOC: MW.SDS 07:43 → MW.MS 12:16 → MW.SDS 04-02 10:00
PROVIDERS: ATTEND Obstetrics & Gynecology
DX: N92.1 Excessive and frequent menstruation with irregular cycle (principal); N94.6 Dysmenorrhea, unspecified; F41.9 Anxiety disorder, unspecified; F32.9 Major depressive disorder, single episode, unspecified; K21.9 Gastro-esophageal reflux disease without esophagitis; F17.210 Nicotine dependence, cigarettes, uncomplicated; Z88.1 Allergy status to other antibiotic agents; Z88.8 Allergy status to other drugs, medicaments and biological substances; Z91.040 Latex allergy status; Z79.899 Other long term (current) drug therapy
CPT/HCPCS: 36415; 58260; 80048; 84703; 85025; 85027; 86850; 86900; 86901; A9270; J0131; J0690; J1100; J1170; J1885; J2001; J2270; J2405; J2704; J3010; J3490; J7120; 00944; 88307

== ENCOUNTER 2020-04-04 11:44 | Emergency (ER) | payer BC ==
--- NOTE | 2020-04-04 11:57 | EDM.PDOC ---
ED HPI GENERAL MEDICAL PROBLEM - General Chief Complaint: Respiratory Problem Stated Complaint: COUGHING UP BLOOD Time Seen by Provider: 04/04/20 11:45 Source of Information: Reports: Patient History Limitations: Reports: No Limitations - History of Present Illness INITIAL COMMENTS - FREE TEXT/NARRATIVE: HISTORY AND PHYSICAL: History of present illness: Patient is a 44-year-old female who presents to the emergency room with complaints of hemoptysis, headache, sore throat and subjective fevers. On 03/31/2020, she had a transvaginal total hysterectomy by Dr Freedman due to excess karen menses. Prior to surgery she said she had a generalized sore throat but otherwise felt "okay". COVID screening done prior to surgery was completed, negative. Since surgery she is to have a sore throat but also has had a cough. She had not previously been on any hormone therapy. No history of bleeding/clotting disorders. Today she woke up with a mild headache and started coughing (which she states is normal because she is a long-term smoker) but noticed blood-tinged sputum associated with it. She has had some right lower anterior chest wall pain. She was given some narcotic pain medication, but states she doesn't tolerate the medication as it makes her dizzy and nauseated. She has been taking Tylenol and aspirin. Patient denies any change in vision, syncope or near syncope. Denies any back pain, shortness of breath, abdominal pain, nausea, vomiting, diarrhea, constipation or dysuria. Has not noted any blood in urine or stool. Patient has been eating and drinking appropriately. Review of systems: As per history of present illness and below otherwise all systems reviewed and negative. Past medical history: As per history of present illness and as reviewed below otherwise noncontributory. Surgical history: As per history of present illness and as reviewed below otherwise noncontributory. Social history: See social history for further information Family history: As per history of present illness and as reviewed below otherwise noncontributory. Physical exam: General: Well-developed and well-nourished 44-year-old female. Alert and oriented. Tearful but nontoxic-appearing and in no acute distress. HEENT: Atraumatic, normocephalic, pupils equal and reactive bilaterally, negative for conjunctival pallor or scleral icterus, mucous membranes moist, TMs normal bilaterally, throat erythematous/irritated without exudate or soft tissue swelling, neck supple, nontender, trachea midline. No drooling or trismus noted. No meningeal signs. No hot potato voice noted. Lungs: Clear to auscultation, breath sounds equal bilaterally, chest nontender. Heart: S1S2, regular rate and rhythm without overt murmur Abdomen: Soft, nondistended, thin, and nontender. Negative for masses or hepatosplenomegaly. Negative for costovertebral tenderness. Pelvis: Stable nontender. Skin: Intact, warm, dry. No lesions or rashes noted. Extremities: Atraumatic, moves all extremities per self without difficulty or deficits, negative for cords or calf pain. Neurovascular unremarkable. Neuro: Awake, alert, oriented. Cranial nerves II through XII unremarkable. Cerebellum unremarkable. Motor and sensory unremarkable throughout. Exam nonfocal. Notes: Hemoglobin and hematocrit are trending up, 04/02/2020 H&H was 8.8 and 25.8, today it is 9 and 26.3. EKG shows a sinus rhythm with rate of 85, previous EKG done in 2017. No acute findings. CT of the chest shows no findings of PE. There are emphysema changes in both lung mir. Nothing acute is appreciated. Patient's vital signs remained stable. Lab work was unremarkable. The patient's reported 1 episode of hemoptysis was likely due to being intubated/extubated from her surgery just a few days prior. She states she feels well. We discussed signs and symptoms that would prompt her to return to the emergency room. 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 I did offer her a tablet of tramadol for her migraine headache as she states she has not been taking her prescription due to it causing adverse effects. Supportive care measures were reviewed and discussed. Voices understanding and is agreeable to plan of care. Denies any further questions or concerns at this time. Diagnostics: CBC, CMP, Troponin, EKG, CTA chest, Strep Therapeutics: IV fluids, Tramadol Prescription: None Impression: Reported hemoptysis with cough Plan: 1. Your lab work, EKG and strep screening are within normal limits. The CT of your chest shows no evidence of a pulmonary embolism (blood clot), and now acute findings. There are some chronic emphysematous changes throughout both lungs. But this should not be causing your symptoms today. The blood that you noticed in your sputum while coughing is likely due to the intubation that was done for your hysterectomy. 2. You can continue taking Tylenol and/or ibuprofen as needed for pain management. 3. Please keep your follow-up appointment with Dr. Freedman, for reevaluation of your postoperative surgery. Should your symptoms worsen, new symptoms develop or anything unexpected arises please return to the emergency room. Definitive disposition and diagnosis as appropriate pending reevaluation and review of above. headache Pain Score (Numeric/FACES): 7 - Related Data Allergies Allergy/AdvReac Type Severity Reaction Status Date / Time adhesive tape Allergy Blisters Verified 04/04/20 11:59 ciprofloxacin Allergy Anxiety Verified 04/04/20 11:59 fluoxetine [From Prozac] Allergy Seizure Verified 04/04/20 11:59 naproxen [From Aleve] Allergy Anaphylactic Verified 04/04/20 11:59 Shock Home Meds: Home Meds Ascorbate Calcium [Vitamin C] 500 mg PO DAILY 03/29/20 [History] Clobetasol Propionate 1 applic TOP BID 03/29/20 [History] [place]-3/DHA/Epa/Fish Oil [[place]-3 Fish Oil 1,000 MG Sfgl] 1,000 mg PO BID 03/29/20 [History] Omeprazole 20 mg PO DAILY 03/29/20 [History] Vitamin E 400 units PO DAILY 03/29/20 [History] clonazePAM [Clonazepam] 0.5 mg PO BEDTIME 03/29/20 [History] Acetaminophen/HYDROcodone [[place] 325-5 MG] 5 - 325 mg PO Q4HR PRN 04/04/20 [History] Ondansetron [Zofran ODT] 4 mg PO Q4HR PRN 04/04/20 [History] Past Medical History - Past Health History Medical/Surgical History: Denies Medical/Surgical History HEENT History: Reports: Other (See Below) Other HEENT History: wears glasses, top denture Cardiovascular History: Reports: None Respiratory History: Reports: Other (See Below) Other Respiratory History: states a doctor in [place] told her she had the starting of emphyzema. smokes 1 PPD x for approx 27 years Gastrointestinal History: Reports: None Genitourinary History: Reports: Renal Calculus MULT AU MATIC OPERATOR History: Reports: None Musculoskeletal History: Reports: Fracture Other Musculoskeletal History: hx fx arm as a child Neurological History: Reports: Migraines, Other (See Below) Other Neuro History: had seizure due to reaction to prozac Psychiatric History: Reports: Anxiety, Depression Endocrine/Metabolic History: Reports: None Hematologic History: Reports: None Immunologic History: Reports: None Oncologic (Cancer) History: Reports: None Dermatologic History: Reports: Psoriasis - Infectious Disease History Infectious Disease History: Reports: None - Past Surgical History Head Surgeries/Procedures: Reports: None HEENT Surgical History: Reports: Oral Surgery, Tonsillectomy Cardiovascular Surgical History: Reports: None Respiratory Surgical History: Reports: None GI Surgical History: Reports: None Female Surgical History: Reports: Breast Biopsy, Tubal Ligation, Other (See Below) Other Female Surgeries/Procedures: Mass removed from right breast, laparoscopic aspiration of ovaries Endocrine Surgical History: Reports: None Neurological Surgical History: Reports: None Musculoskeletal Surgical History: Reports: None Oncologic Surgical History: Reports: None Dermatological Surgical History: Reports: None Social & Family History - Family History Family Medical History: Noncontributory - Caffeine Use Caffeine Use: Reports: Coffee ED ROS GENERAL - Review of Systems Review Of Systems: Comprehensive ROS is negative, except as noted in HPI. ED EXAM, GENERAL - Physical Exam Exam: See Below (See dictation) Course - Vital Signs Last Recorded V/S: Last Vital Signs Temp 96.9 F 04/04/20 11:51 Pulse 79 04/04/20 13:00 Resp 18 04/04/20 13:00 BP 101/55 L 04/04/20 13:00 Pulse Ox 99 04/04/20 13:00 - Orders/Labs/Meds Orders: Active Orders 24 hr Category Date Time Status EKG Documentation Completion [RC] STAT Care 04/04/20 12:09 Active CULTURE STREP A CONFIRMATION [RM] Stat Lab 04/04/20 12:13 Results STREP SCRN A RAPID W CULT CONF [RM] Stat Lab 04/04/20 12:13 Results traMADol [Ultram] Med 04/04/20 14:21 Once 50 mg PO ONETIME ONE Medication Orders Tramadol HCl (Ultram) 50 mg PO ONETIME ONE Stop: 04/04/20 14:22 Labs: Laboratory Tests 04/04/20 04/04/20 04/04/20 Range/Units 12:10 12:10 12:10 WBC 9.97 (4.0-11.0) K/uL RBC 2.80 L (4.30-5.90) M/uL Hgb 9.0 L (12.0-16.0) g/dL Hct 26.3 L (36.0-46.0) % MCV 93.9 (80.0-98.0) fL MCH 32.1 H (27.0-32.0) pg MCHC 34.2 (31.0-37.0) g/dL RDW Std Deviation 45.4 (28.0-62.0) fl RDW Coeff of Robyn 13 (11.0-15.0) % Plt Count 200 (150-400) K/uL MPV 10.50 (7.40-12.00) fL Neut % (Auto) 65.5 (48.0-80.0) % Lymph % (Auto) 26.4 (16.0-40.0) % [place] % (Auto) 7.4 (0.0-15.0) % Eos % (Auto) 0.5 (0.0-7.0) % Baso % (Auto) 0.2 (0.0-1.5) % Neut # (Auto) 6.5 H (1.4-5.7) K/uL Lymph # (Auto) 2.6 H (0.6-2.4) K/uL [place] # (Auto) 0.7 (0.0-0.8) K/uL Eos # (Auto) 0.1 (0.0-0.7) K/uL Baso # (Auto) 0.0 (0.0-0.1) K/uL Nucleated RBC % 0.0 /100WBC Nucleated RBCs # 0 K/uL Sodium 141 (136-145) mmol/L Potassium 3.5 (3.5-5.1) mmol/L Chloride 105 (98-107) mmol/L Carbon Dioxide 25.0 (21.0-32.0) mmol/L BUN 5 L (7.0-18.0) mg/dL Creatinine 0.7 (0.6-1.0) mg/dL Est Cr Clr Drug Dosing 83.43 mL/min Estimated GFR (MDRD) > 60.0 ml/min Glucose 88 (74-106) mg/dL Calcium 8.9 (8.5-10.1) mg/dL Total Bilirubin 0.4 (0.2-1.0) mg/dL AST 16 (15-37) IU/L ALT 14 (14-63) IU/L Alkaline Phosphatase 70 (46-116) U/L Troponin I < 0.050 (0.000-0.056) ng/mL Total Protein 6.8 (6.4-8.2) g/dL Albumin 3.6 (3.4-5.0) g/dL Globulin 3.2 (2.6-4.0) g/dL Albumin/Globulin Ratio 1.1 (0.9-1.6) Meds: Medications Generic Name Dose Route Start Last Admin Trade Name Freq PRN Reason Stop Dose Admin Tramadol HCl 50 mg 04/04/20 14:21 Ultram PO 04/04/20 14:22 ONETIME ONE Discontinued Medications Generic Name Dose Route Start Last Admin Trade Name Freq PRN Reason Stop Dose Admin Sodium Chloride 1,000 mls @ 999 mls/hr 04/04/20 12:01 04/04/20 12:16 Normal Saline IV 04/04/20 13:01 999 mls/hr STAT ONE Administration Iopamidol 50 ml 04/04/20 13:41 04/04/20 13:41 Isovue-370 (76%) IV 04/04/20 13:42 50 ml ONETIME ONE Administration Departure - Departure Time of Disposition: 14:26 Disposition: Home, Self-Care 01 Clinical Impression: Cough with hemoptysis - Discharge Information Instructions: Cough, Adult, [id number] Referrals: Otto Freedman MD [Primary Care Provider] - Forms: ED Department Discharge Additional Instructions: The following information is given to patients seen in the emergency department who are being discharged to home. This information is to outline your options for follow-up care. We provide all patients seen in our emergency department with a follow-up referral. The need for follow-up, as well as the timing and circumstances, are variable de pending upon the specifics of your emergency department visit. If you don't have a primary care physician on staff, we will provide you with a referral. We always advise you to contact your personal physician following an emergency department visit to inform them of the circumstance of the visit and for follow-up with them and/or the need for any referrals to a consulting specialist. The emergency department will also refer you to a specialist when appropriate. This referral assures that you have the opportunity for follow-up care with a specialist. All of these measure are taken in an effort to provide you with optimal care, which includes your follow-up. Under all circumstances we always encourage you to contact your private physician who remains a resource for coordinating your care. When calling for follow-up care, please make the office aware that this follow-up is from your recent emergency room visit. If for any reason you are refused follow-up, please contact the [facility] Emergency Department at and asked to speak to the emergency department charge nurse. [facility] [address] [place] [id number] [place] [address] Thank you for choosing the [facility] emergency department in [place] for your medical needs today. It was a pleasure caring for you. You were seen in the emergency department for blood noted in your sputum with cough. 1. Your lab work, EKG and strep screening are within normal limits. The CT of your chest shows no evidence of a pulmonary embolism (blood clot), and now acute findings. There are some chronic emphysematous changes throughout both lungs. But this should not be causing your symptoms today. The blood that you noticed in your sputum while coughing is likely due to the intubation that was done for your hysterectomy. 2. You can continue taking Tylenol and/or ibuprofen as needed for pain management. 3. Please keep your follow-up appointment with Dr. Freedman, for reevaluation of your postoperative surgery. Should your symptoms worsen, new symptoms develop or anything unexpected arises please return to the emergency room. Sepsis Event Note (ED) - Focused Exam Vital Signs: Vital Signs Temp Pulse Resp BP Pulse Ox 04/04/20 13:00 79 18 101/55 L 99 04/04/20 11:51 96.9 F 99 18 112/60 98 - My Orders Last 24 Hours: My Active Orders 04/04/20 12:09 EKG Documentation Completion [RC] STAT 04/04/20 12:13 CULTURE STREP A CONFIRMATION [RM] Stat STREP SCRN A RAPID W CULT CONF [RM] Stat 04/04/20 14:21 traMADol [Ultram] 50 mg PO ONETIME ONE - Assessment/Plan Last 24 Hours: My Active Orders 04/04/20 12:09 EKG Documentation Completion [RC] STAT 04/04/20 12:13 CULTURE STREP A CONFIRMATION [RM] Stat STREP SCRN A RAPID W CULT CONF [RM] Stat 04/04/20 14:21 traMADol [Ultram] 50 mg PO ONETIME ONE
[2020-04-04] MEDS ORDERED: Sodium Chloride 0.9% 1,000 ML IV ONE (12:01)
[2020-04-04 12:49] LABS: BLOOD UREA NITROGEN,BUN 5 mg/dL (7.0-18.0); CHLORIDE,CL 105 mmol/L (98-107); GLUCOSE RANDOM 88 mg/dL (74-106); POTASSIUM,K 3.5 mmol/L (3.5-5.1); SODIUM,NA 141 mmol/L (136-145)
[2020-04-04] MEDS ORDERED: Iopamidol 755 Mg/ML 100 ML Bottle IVPUSH ONE (13:40)
[2020-04-04] MEDS ORDERED: Iopamidol 755 MG/ML 50 ML Bottle IV ONE (13:41)
--- NOTE | 2020-04-04 14:17 | CT ---
CT chest Technique: Multiple axial sections through the chest were obtained. Intravenous contrast was utilized. Study performed as a pulmonary angiogram protocol. Findings: Pulmonary arteries are well-opacified. No filling defects are seen to indicate pulmonary embolism. Aorta shows no aneurysm or dissection. Mediastinum and hilar regions show no adenopathy. No axillary adenopathy is seen. Visualized upper abdominal structures appear within normal limits. Emphysematous changes are seen throughout both lungs. No acute parenchymal change is appreciated. No pleural effusions are noted. Bone window settings were reviewed which shows slight degenerative change throughout the spine. Impression: 1. No findings of pulmonary embolism. 2. Emphysematous change. 3. Nothing acute is appreciated. Diagnostic code #3 This report was dictated in MDT
[2020-04-04] MEDS ORDERED: traMADol 50 MG Tab PO ONE (14:21)
[2020-04-04 14:38] VITALS: BP 102/64; PULSE 86
== END 2020-04-04 14:43 | disposition home or self-care (01) ==
LOC: MW.ED 11:44
DX: R04.2 Hemoptysis (principal); F41.9 Anxiety disorder, unspecified; F32.9 Major depressive disorder, single episode, unspecified; Z91.048 Other nonmedicinal substance allergy status; Z88.1 Allergy status to other antibiotic agents; Z88.8 Allergy status to other drugs, medicaments and biological substances; Z79.899 Other long term (current) drug therapy
CPT/HCPCS: 36415; 71275; 80053; 84484; 85025; 87081; 87880; 93005; 96360; 99284; A9270; J7030; Q9967; 99283

== ENCOUNTER 2020-12-16 06:21 | Day surgery (SDC) | payer BC ==
[2020-12-16] MEDS ORDERED: Scopolamine 1.5 MG Transdermal Patch TRDERM PRN (07:04)
--- NOTE | 2020-12-16 07:04 | PCM.PREANE ---
Preanesthetic Assessment - Anesthesia/Transfusion/Family Hx Anesthesia History: Prior Anesthesia Reaction Type of Anesthesia Reaction: Excessive Nausea/Vomiting Family History of Anesthesia Reaction: No Transfusion History: No Prior Transfusion(s) Intubation History: Unknown - Review of Systems General: No Symptoms Pulmonary: No Symptoms Cardiovascular: No Symptoms Gastrointestinal: Abdominal Pain (pelvic pain) Neurological: No Symptoms Other: Reports: None - Physical Assessment Height: 5 ft 4 in Weight: 57.153 kg ASA Class: 2 Mental Status: Alert & Oriented x3 Airway Class: Mallampati = 1 Dentition: Reports: Dentures (upper) Thyro-Mental Finger Breadths: 3 Mouth Opening Finger Breadths: 2 ROM/Head Extension: Full Lungs: Clear to Auscultation, Normal Respiratory Effort Cardiovascular: Regular Rate, Regular Rhythm - Allergies Allergies/Adverse Reactions: Allergies Allergy/AdvReac Type Severity Reaction Status Date / Time acetaminophen [From Percocet] Allergy Hallucinati Verified 12/15/20 12:34 ons adhesive tape Allergy Blisters Verified 12/15/20 12:29 ciprofloxacin Allergy Anxiety Verified 12/15/20 12:29 fluoxetine [From Prozac] Allergy Seizure Verified 12/15/20 12:29 hydrocodone Allergy Hallucinati Verified 12/15/20 12:34 ons naproxen [From Aleve] Allergy Anaphylactic Verified 12/15/20 12:29 Shock oxycodone [From Percocet] Allergy Hallucinati Verified 12/15/20 12:34 ons - Blood Blood Available: No - Anesthesia Plan Pre-Op Medication Ordered: None - Acknowledgements Anesthesia Type Planned: General Anesthesia Pt an Appropriate Candidate for the Planned Anesthesia: Yes Alternatives and Risks of Anesthesia Discussed w Pt/Guardian: Yes Pt/Guardian Understands and Agrees with Anesthesia Plan: Yes PreAnesthesia Questionnaire - Past Health History Medical/Surgical History: Denies Medical/Surgical History HEENT History: Reports: Other (See Below) Other HEENT History: wears glasses, top denture Cardiovascular History: Reports: Other (See Below) Other Cardiovascular History: "been told I have a small leaky valve, but is no problem". 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 Musculoskeletal History: Reports: Fracture Other Musculoskeletal History: hx fx arm as a child Neurological History: Reports: Migraines, Other (See Below) Other Neuro History: had seizure due to reaction to prozac Psychiatric History: Reports: Anxiety, Depression Endocrine/Metabolic History: Reports: None Hematologic History: Reports: None Immunologic History: Reports: None Oncologic (Cancer) History: Reports: None Dermatologic History: Reports: Psoriasis - Infectious Disease History Infectious Disease History: Reports: None - Past Surgical History Head Surgeries/Procedures: Reports: None HEENT Surgical History: Reports: Oral Surgery, Tonsillectomy Cardiovascular Surgical History: Reports: None Respiratory Surgical History: Reports: None GI Surgical History: Reports: None Female Surgical History: Reports: Breast Biopsy, Hysterectomy, Tubal Ligation, Other (See Below) Other Female Surgeries/Procedures: Mass removed from right breast, laparoscopy for ovarian cysts, partial hysterectomy Endocrine Surgical History: Reports: None Neurological Surgical History: Reports: None Musculoskeletal Surgical History: Reports: None Oncologic Surgical History: Reports: Biopsy of Breast Dermatological Surgical History: Reports: None - SUBSTANCE USE Tobacco Use Status *Q: Current Every Day Tobacco User (> 1ppd) Tobacco Use Within Last Twelve Months: Cigarettes - HOME MEDS Home Medications: Home Meds Ascorbate Calcium [Vitamin C] 500 mg PO DAILY 03/29/20 [History] Clobetasol Propionate 1 applic TOP BID PRN 03/29/20 [History] [place]-3/DHA/Epa/Fish Oil [[place]-3 Fish Oil 1,000 MG Sfgl] 1,000 mg PO DAILY 03/29/20 [History] Omeprazole 20 mg PO DAILY 03/29/20 [History] Vitamin E 400 units PO DAILY 03/29/20 [History] clonazePAM [Clonazepam] 0.5 mg PO BEDTIME 03/29/20 [History] Ondansetron [Zofran ODT] 4 mg PO Q4HR PRN 04/04/20 [History] Acyclovir 400 mg PO DAILY 12/15/20 [History] Meperidine HCl [Demerol] 50 mg PO ASDIRECTED PRN 12/15/20 [History]
[2020-12-16] MEDS ORDERED: fentaNYL 250 MCG/5 ML SDV ONE (07:17)
[2020-12-16] MEDS ORDERED: Midazolam 1 MG/ML 2 ML SDV ONE (07:17)
[2020-12-16] MEDS ORDERED: Rocuronium Bromide 50 MG/5 ML Syringe ONE (07:17)
[2020-12-16] MEDS ORDERED: Dexamethasone 4 MG/ML 5 ML MDV ONE (07:17)
[2020-12-16] MEDS ORDERED: Propofol 200 MG/20 ML SDV ONE (07:17)
[2020-12-16] MEDS ORDERED: Ondansetron 4 MG/2 ML SDV ONE (07:17)
[2020-12-16] MEDS ORDERED: Lidocaine 2% 5 ML SDV ONE (07:17)
[2020-12-16] MEDS ORDERED: Glycopyrrolate 0.2 MG/ML SDV ONE (08:12)
[2020-12-16] MEDS ORDERED: Ketorolac 30 MG/ML SDV ONE (08:13)
[2020-12-16] MEDS ORDERED: Octyl 2-Cyanoacrylate 1 Tube ONE (08:29)
--- NOTE | 2020-12-16 08:55 | PCM.OPNOTE ---
- General Post-Op/Procedure Note Date of Surgery/Procedure: 12/16/20 Operative Procedure(s): Dignostic Laparascopy, BSO Pre Op Diagnosis: Ovarian cyst Post-Op Diagnosis: Same Anesthesia Technique: General ET Tube Primary Surgeon: Otto Freedman EBL in mLs: 50 Complications: None Condition: Good Free Text/Narrative:: Intake & Output 12/15/20 12/16/20 12/16/20 22:59 06:59 14:59 Output Total 30 Balance -30
--- NOTE | 2020-12-16 08:56 | PCM.DCSUM1 ---
Discharge Summary - Hospital Course Diagnosis: Stroke: No - Discharge Data Discharge Date: 12/16/20 Discharge Disposition: Home, Self-Care 01 Condition: Good - Referral to Home Health Primary Care Physician: PCP None - Patient Summary/Data Operative Procedure(s) Performed: Dignostic Laparascopy, BSO - Patient Instructions Diet: Usual Diet as Tolerated Activity: As Tolerated Showering/Bathing: May Shower Wound/Incision Care: Keep Operative Site/Wound Site Clean and Dry - Discharge Plan Home Medications: Home Meds Ascorbate Calcium [Vitamin C] 500 mg PO DAILY 03/29/20 [History] Clobetasol Propionate 1 applic TOP BID PRN 03/29/20 [History] [place]-3/DHA/Epa/Fish Oil [[place]-3 Fish Oil 1,000 MG Sfgl] 1,000 mg PO DAILY 03/29/20 [History] Omeprazole 20 mg PO DAILY 03/29/20 [History] Vitamin E 400 units PO DAILY 03/29/20 [History] clonazePAM [Clonazepam] 0.5 mg PO BEDTIME 03/29/20 [History] Ondansetron [Zofran ODT] 4 mg PO Q4HR PRN 04/04/20 [History] Acyclovir 400 mg PO DAILY 12/15/20 [History] Meperidine HCl [Demerol] 50 mg PO ASDIRECTED PRN 12/15/20 [History] - Discharge Summary/Plan Comment DC Time >30 min.: Yes - General Info Date of Service: 12/16/20 Functional Status: Reports: Pain Controlled - Review of Systems General: Reports: No Symptoms HEENT: Reports: No Symptoms Pulmonary: Reports: No Symptoms Cardiovascular: Reports: No Symptoms Gastrointestinal: Reports: No Symptoms Genitourinary: Reports: No Symptoms Musculoskeletal: Reports: No Symptoms Skin: Reports: No Symptoms Neurological: Reports: No Symptoms Psychiatric: Reports: No Symptoms - Patient Data Vitals - Most Recent: Last Vital Signs Temp 36.7 C 12/16/20 08:40 Pulse 54 L 12/16/20 08:50 Resp 21 H 12/16/20 08:50 BP 101/60 12/16/20 08:50 Pulse Ox 99 12/16/20 08:50 Weight - Most Recent: 57.153 kg I&O - Last 24 hours: Intake & Output 12/15/20 12/16/2021 22:59 06:59 14:59 Output Total 30 Balance -30 Med Orders - Current: Current Medications Scopolamine (Scopolamine 1.5 Mg Transdermal Patch) 1.5 mg TRDERM Q72H PRN PRN Reason: Nausea Last Admin: 12/16/20 07:32 Dose: 1.5 mg Documented by: Discontinued Medications Dexamethasone (Dexamethasone 4 Mg/Ml 5 Ml Mdv) Confirm Administered Dose 20 mg .ROUTE .STK-MED ONE Stop: 12/16/20 07:18 Fentanyl (Fentanyl 250 Mcg/5 Ml Sdv) Confirm Administered Dose 250 mcg .ROUTE .STK-MED ONE Stop: 12/16/20 07:18 Glycopyrrolate (Glycopyrrolate 0.2 Mg/Ml Sdv) Confirm Administered Dose 0.2 mg .ROUTE .STK-MED ONE Stop: 12/16/20 08:13 Ketorolac Tromethamine (Ketorolac 30 Mg/Ml Sdv) Confirm Administered Dose 30 mg .ROUTE .STK-MED ONE Stop: 12/16/20 08:14 Lidocaine (Lidocaine 2% 5 Ml Sdv) Confirm Administered Dose 5 ml .ROUTE .STK-MED ONE Stop: 12/16/20 07:18 Midazolam HCl (Midazolam 1 Mg/Ml 2 Ml Sdv) Confirm Administered Dose 2 mg .ROUTE .STK-MED ONE Stop: 12/16/20 07:18 Octyl Cyanoacrylate (Octyl 2-Cyanoacrylate 1 Tube) Confirm Administered Dose 1 applic .ROUTE .STK-MED ONE Stop: 12/16/20 08:30 Ondansetron HCl (Ondansetron 4 Mg/2 Ml Sdv) Confirm Administered Dose 4 mg .ROUTE .STK-MED ONE Stop: 12/16/20 07:18 Propofol (Propofol 200 Mg/20 Ml Sdv) Confirm Administered Dose 400 mg .ROUTE .STK-MED ONE Stop: 12/16/20 07:18 Rocuronium [place] (Rocuronium [place] 50 Mg/5 Ml Syringe) Confirm Administered Dose 50 mg .ROUTE .STK-MED ONE Stop: 12/16/20 07:18 - Exam General: Reports: Alert, Oriented HEENT: Reports: Pupils Equal, Pupils Reactive, EOMI, Mucous Membr. Moist/[place]: Reports: Supple Lungs: Reports: Clear to Auscultation, Normal Respiratory Effort Cardiovascular: Reports: Regular Rate, Regular Rhythm GI/Abdominal Exam: Normal Bowel Sounds, Soft, Non-Tender, No Organomegaly, No Distention, No Abnormal Bruit, No Mass, Pelvis Stable (Female) Exam: Normal External Exam, Normal Speculum Exam, Normal Bimanual Exam Rectal (Female) Exam: Normal Exam, Normal Rectal Tone Back Exam: Reports: Normal Inspection, Full Range of Motion Extremities: Normal Inspection, Normal Range of Motion, Non-Tender, No Pedal Edema, Normal Capillary Refill Skin: Reports: Warm, Dry, Intact Wound/Incisions: Reports: Healing Well Neurological: Reports: No New Focal Deficit Psy/Mental Status: Reports: Alert, Normal Affect, Normal Mood
--- NOTE | 2020-12-16 09:24 | PCM.POSTAN ---
POST ANESTHESIA ASSESSMENT - MENTAL STATUS Mental Status: Alert, Oriented - VITAL SIGNS Vital Signs: Last Vital Signs Temp 36.7 C 12/16/20 08:40 Pulse 73 12/16/20 09:15 Resp 13 12/16/20 09:15 BP 105/65 12/16/20 09:15 Pulse Ox 93 L 12/16/20 09:15 - RESPIRATORY Respiratory Status: Respiratory Rate WNL, Airway Patent, O2 Saturation Stable - CARDIOVASCULAR CV Status: Pulse Rate WNL, Blood Pressure Stable - GASTROINTESTINAL GI Status: No Symptoms - PAIN Pain Score: 3 - POST OP HYDRATION Hydration Status: Adequate & Stable - OBSERVATIONS Free Text/Narrative:: No anesthesia problems
[2020-12-16 10:17] VITALS: BP 104/60; PULSE 68
--- NOTE | 2020-12-16 10:45 | PCM48HPAN ---
Post Anesthesia Note - EVALUATION WITHIN 48HRS OF ANESTHETIC Vital Signs in Normal Range: Yes Patient Participated in Evaluation: Yes Respiratory Function Stable: Yes Airway Patent: Yes Cardiovascular Function Stable: Yes Hydration Status Stable: Yes Pain Control Satisfactory: Yes Nausea and Vomiting Control Satisfactory: Yes Mental Status Recovered: Yes Vital Signs: Last Vital Signs Temp 36.6 C 12/16/20 09:25 Pulse 68 12/16/20 10:10 Resp 14 12/16/20 10:10 BP 104/60 12/16/20 10:10 Pulse Ox 94 L 12/16/20 10:10 - COMMENTS/OBSERVATIONS Free Text/Narrative:: No anesthesia problems
--- NOTE | 2020-12-16 12:23 | OR ---
SURGEON: Otto Freedman MD DATE OF PROCEDURE: 12/16/2020 PREOPERATIVE DIAGNOSES: Pelvic pain, ruptured left ovarian cyst, possible torsion. POSTOPERATIVE DIAGNOSES: Pelvic pain, ruptured left ovarian cyst, possible torsion. OPERATION PERFORMED: Multiple-puncture diagnostic laparoscopy, lysis of adhesion, peritoneal lavage, and bilateral salpingo-oophorectomy. PRIMARY SURGEON: Otto Freedman MD VICE PRESIDENT SAFETY: Or tech. ANESTHESIA: General endotracheal intubation, Rosi Jackson and Dr. Ayala ESTIMATED BLOOD LOSS: Less than 50 mL. COMPLICATIONS: None. FINDINGS: Pelvic adhesion and ruptured left ovarian cyst. INDICATIONS FOR SURGERY: [place] referred to the admit note. PROCEDURE IN DETAIL: The patient was brought to the OR, properly identified. After adequate level of anesthesia, the patient was placed in lithotomy position, prepped and draped in sterile fashion as usual. Straight catheter was used to empty the bladder and sponge and stick were placed in the vagina for manipulation. The operation shifted abdominally. Stab wound done beneath the umbilicus. The Veress needle was placed in peritoneal cavity and that cavity insufflated with adequate amount of carbon dioxide, and 5 mm trocar was used to enter the abdomen utilizing the Visiport technique. Once we did that, the patient was placed into Trendelenburg and 10/12 trocar placed in the left iliac fossa and 5 mm trocar in the right. The operation started by lysing the adhesion and restoring normal anatomy. There was a blood clot between the sigmoid and the left pelvic sidewall and the ovary, and after lysing of the adhesion and freeing of this, this blood clot evacuated, and we proceeded to do a left salpingo-oophorectomy by using the Harmonic scalpel with the superior pedicle coagulated and transected and the ovary was removed and removed through the 10/12 trocar port. Next, attention paid to the right tube and ovary and then the superior pedicle coagulated and transected with the Harmonic scalpel and dissection was completed and the right tube and ovary detached from the abdomen and removed through the 10/12 laparoscopic port. Once we did that, thorough irrigation of the pelvis was done. There was no oozing. No bleeding. Satisfied with these findings, the procedure ended. The instrument and hardware retrieved from the abdomen and the vagina. The instrument and hardware and sponge count was correct. The multiple laparoscopic incisions were closed in layer. The patient tolerated the procedure well, went to recovery room in stable general condition. JANET AYERS /[id number]
== END 2020-12-16 10:27 | disposition home or self-care (01) ==
LOC: MW.SDS 06:21
PROVIDERS: ATTEND Obstetrics & Gynecology
DX: N83.12 Corpus luteum cyst of left ovary (principal); N73.6 Female pelvic peritoneal adhesions (postinfective); N83.8 Other noninflammatory disorders of ovary, fallopian tube and broad ligament; N39.3 Stress incontinence (female) (male); F17.210 Nicotine dependence, cigarettes, uncomplicated; Z88.1 Allergy status to other antibiotic agents; Z88.8 Allergy status to other drugs, medicaments and biological substances; Z91.040 Latex allergy status; Z88.6 Allergy status to analgesic agent; Z98.890 Other specified postprocedural states
CPT/HCPCS: 58661; 88305; A9270; J1100; J1885; J2250; J2405; J2704; J3010; J3490; 00840

== ENCOUNTER 2021-10-31 20:19 | Emergency (ER) | payer BC ==
[2021-10-31] MEDS ORDERED: Aspirin 81 MG Tab.Chew PO ONE (21:14)
[2021-10-31 22:07] LABS: BLOOD UREA NITROGEN,BUN 8 mg/dL (7.0-18.0); CHLORIDE,CL 104 mmol/L (98-107); GLUCOSE RANDOM 95 mg/dL (74-106); POTASSIUM,K 3.8 mmol/L (3.5-5.1); SODIUM,NA 141 mmol/L (136-145)
[2021-10-31 22:52] VITALS: BP 121/77; PULSE 89
== END 2021-10-31 22:45 | disposition home or self-care (01) ==
LOC: MW.ED 20:19
DX: M94.0 Chondrocostal junction syndrome [Tietze] (principal); K21.9 Gastro-esophageal reflux disease without esophagitis; Z88.8 Allergy status to other drugs, medicaments and biological substances; Z88.1 Allergy status to other antibiotic agents; Z72.0 Tobacco use; Z79.899 Other long term (current) drug therapy
CPT/HCPCS: 36415; 71045; 80053; 84484; 85025; 93005; 99285; A9270